=== PATIENT | male | born 1970 | race Caucasian/White ===

== ENCOUNTER 2016-09-26 14:11 | Emergency (ER) | payer MEDICARE, MEDICAID ==
--- NOTE | 2016-09-26 14:33 | ER Document Report ---
ED Medical Screen (RME) - General Stated Complaint: BELLY BUTTON PAIN Time seen by provider: 14:29 Mode of Arrival: Ambulatory Information source: Patient Notes: 46 y0 male with hx 3 hernias is c/o perminantly protruding umbilicus for several months, noticed skin is wet and peeling off when bent forward today to pick something up off the floor. Hx liver failure and perocentisis. Feels normal rest of the rest of the body. TRAVEL OUTSIDE OF THE [place] IN LAST 30 DAYS: No - Related Data Allergies/Adverse Reactions: No Known Allergies Allergy (Verified 09/26/16 14:29) Past Medical History - Past Medical History Cardiac Medical History: Reports: Hx Coronary Artery Disease - HIGH CHOLESTEROL , Hx Hypercholesterolemia, Hx Hypertension Denies: Hx Heart Attack Pulmonary Medical History: Denies: Hx Asthma, Hx Bronchitis, Hx COPD, Hx Pneumonia Neurological Medical History: Denies: Hx Cerebrovascular Accident, Hx Seizures Endocrine Medical History: Reports: Hx Diabetes Mellitus Type 2 GI Medical History: Reports: Hx Cirrhosis, Hx Hepatitis, Hx Liver Failure Musculoskeltal Medical History: Denies Hx Arthritis Psychiatric Medical History: Reports: Hx Anxiety, Hx Depression Infectious Medical History: Reports: Hx Hepatitis Past Surgical History: Denies: Hx Pacemaker - Immunizations Hx Diphtheria, Pertussis, Tetanus Vaccination: Yes Physical Exam - Vital signs Vitals: Temp Pulse Resp BP Pulse Ox 97.8 F 103 H 18 151/118 H 98 09/26/16 14:32 09/26/16 14:32 09/26/16 14:32 09/26/16 14:32 09/26/16 14:32 Course - Vital Signs Vital signs: Temp Pulse Resp BP Pulse Ox 97.8 F 103 H 18 151/118 H 98 09/26/16 14:32 09/26/16 14:32 09/26/16 14:32 09/26/16 14:32 09/26/16 14:32
[2016-09-26 15:20] LABS: ABSOLUTE BASOPHILS # (AUTO) 0.1 10^3/uL (0.0-0.2); ABSOLUTE EOSINOPHILS # (AUTO) 0.1 10^3/uL (0.0-0.6); ABSOLUTE LYMPHOCYTES (AUTO) 0.5 10^3/uL (0.5-4.7); ABSOLUTE MONOCYTES (AUTO) 0.9 10^3/uL (0.1-1.4); ABSOLUTE NEUT (AUTO) 3.1 10^3/uL (1.7-8.2); BASOPHILS % (AUTO) 1.3 % (0-2); HEMOGLOBIN 9.1 g/dL (13.5-17.0)
[2016-09-26 15:26] LABS: EOSINOPHILS % (AUTO) 1.8 % (0-6); HEMATOCRIT 25.7 % (37.9-51.0); HGB HCT DIFFERENCE 1.6; LYMPHOCYTES % (AUTO) 11.2 % (13-45); MEAN CORPUSCULAR HEMOGLOBIN 32.3 pg (27.0-33.4); MEAN CORPUSCULAR HGB CONC 35.3 g/dL (32.0-36.0); MONOCYTES % (AUTO) 19.2 % (3-13); RED CELL DISTRIBUTION WIDTH 16.4 % (11.5-14.0); SEGMENTED NEUTROPHILS % (AUTO) 66.5 % (42-78); WHITE BLOOD COUNT 4.7 10^3/uL (4.0-10.5)
[2016-09-26 15:35] LABS: ALANINE AMINOTRANSFERASE 35 U/L (21-72); ALKALINE PHOSPHATASE 94 U/L (38-126); ANION GAP 8 (5-19); ASPARTATE AMINO TRANSFERASE 65 U/L (17-59); BILIRUBIN,TOTAL 2.7 mg/dL (0.2-1.3); BLOOD UREA NITROGEN 4 mg/dL (7-20); CALCIUM 8.6 mg/dL (8.4-10.2); CARBON DIOXIDE 33 mmol/L (22-30); CHLORIDE 89 mmol/L (98-107); CREATININE RESULT 0.52 mg/dL (0.52-1.25); GLUCOSE 218 mg/dL (75-110); POTASSIUM 3.6 mmol/L (3.6-5.0); TOTAL PROTEIN 6.5 g/dL (6.3-8.2)
--- NOTE | 2016-09-26 15:46 | ER Document Report ---
ED General - General Chief Complaint: Skin Problem Stated Complaint: BELLY BUTTON PAIN Mode of Arrival: Ambulatory Information source: Patient Notes: 46-year-old male who has a history of an umbilical hernia secondary to ascites from liver failure due to alcohol intoxication chronic presents with complaints that there is irritation of the umbilical hernia. Patient denies any difficulty with bowel movements, denies any pain. Notes that the area. Demerol when he touched it and came in for evaluation TRAVEL OUTSIDE OF THE [place] IN LAST 30 DAYS: No - HPI Onset: Just prior to arrival Onset/Duration: Sudden Quality of pain: No pain Severity: Mild Pain Level: Denies Associated symptoms: None Exacerbated by: Denies Relieved by: Denies Similar symptoms previously: No Recently seen / treated by doctor: No - Related Data Allergies/Adverse Reactions: No Known Allergies Allergy (Verified 09/26/16 14:29) Past Medical History - General Information source: Patient - Social History Smoking Status: Unknown if Ever Smoked Cigarette use (# per day): No Chew tobacco use (# tins/day): No Smoking Education Provided: No Frequency of alcohol use: None Drug Abuse: None Family History: Reviewed & Not Pertinent Patient has suicidal ideation: No Patient has homicidal ideation: No - Past Medical History Cardiac Medical History: Reports: Hx Coronary Artery Disease - HIGH CHOLESTEROL , Hx Hypercholesterolemia, Hx Hypertension Denies: Hx Heart Attack Pulmonary Medical History: Denies: Hx Asthma, Hx Bronchitis, Hx COPD, Hx Pneumonia Neurological Medical History: Denies: Hx Cerebrovascular Accident, Hx Seizures Endocrine Medical History: Reports: Hx Diabetes Mellitus Type 2 GI Medical History: Reports: Hx Cirrhosis, Hx Hepatitis, Hx Liver Failure Musculoskeltal Medical History: Denies Hx Arthritis Psychiatric Medical History: Reports: Hx Anxiety, Hx Depression Infectious Medical History: Reports: Hx Hepatitis Past Surgical History: Denies: Hx Pacemaker - Immunizations Hx Diphtheria, Pertussis, Tetanus Vaccination: Yes Review of Systems - Review of Systems Notes: REVIEW OF SYSTEMS: CONSTITUTIONAL : Denies fever, chills, or sweats. Denies recent illness. EENT: Denies eye, ear, throat, or mouth pain or symptoms. Denies nasal or sinus congestion or discharge. Denies throat, tongue, or mouth swelling or difficulty swallowing. CARDIOVASCULAR: Denies chest pain. Denies palpitations or racing or irregular heart beat. Denies ankle edema. RESPIRATORY: Denies cough, cold, or chest congestion. Denies shortness of breath, difficulty breathing, or wheezing. GASTROINTESTINAL: Admits to chronic abdominal distention GENITOURINARY: Denies difficulty urinating, painful urination, burning, frequency, blood in urine, or discharge. MUSCULOSKELETAL: Denies back or neck pain or stiffness. Denies joint pain or swelling. SKIN: Admits to sloughing of skin from umbilical hernia HEMATOLOGIC : Denies easy bruising or bleeding. LYMPHATIC: Denies swollen, enlarged glands. NEUROLOGICAL: Denies confusion or altered mental status. Denies passing out or loss of consciousness. Denies dizziness or lightheadedness. Denies headache. Denies weakness or paralysis or loss of use of either side. Denies problems with gait or speech. Denies sensory loss, numbness, or tingling. Denies seizures. PSYCHIATRIC: Denies anxiety or stress. Denies depression, suicidal ideation, or homicidal ideation. ALL OTHER SYSTEMS REVIEWED AND NEGATIVE. Dictation was performed using yoone voice recognition software PHYSICAL EXAMINATION: GENERAL: Well-appearing, well-nourished and in no acute distress. HEAD: Atraumatic, normocephalic. EYES: Pupils equal round and reactive to light, extraocular movements intact, sclera anicteric, conjunctiva are normal. ENT: Nares patent, oropharynx clear without exudates. Moist mucous membranes. NECK: Normal range of motion, supple without lymphadenopathy LUNGS: Breath sounds clear to auscultation bilaterally and equal. No wheezes rales or rhonchi. HEART: Regular rate and rhythm without murmurs ABDOMEN: Distended abdomen umbilical hernia easily reducible Musculoskeletal: Normal range of motion, no pitting or edema. No cyanosis. NEUROLOGICAL: Cranial nerves grossly intact. Normal speech, normal gait. Normal sensory, motor exams PSYCH: Normal mood, normal affect. SKIN: Circular region measuring 2 x 2 centimeters of the left lateral hernia that has a skin slough off no secondary sign of infection Physical Exam - Vital signs Vitals: Temp Pulse Resp BP Pulse Ox 97.8 F 103 H 18 151/118 H 98 09/26/16 14:32 09/26/16 14:32 09/26/16 14:32 09/26/16 14:32 09/26/16 14:32 Course - Re-evaluation Re-evalutation: 09/26/16 16:04 Patient has obvious softening of the skin, this is probably due to do chronic hernia with distention. There is no life-threatening issues at this time I will start the patient on silver sulfadiazine and follow-up with his own primary care physician as he is otherwise stable There is no obstruction noted After performing a Medical Screening Examination, I estimate there is LOW risk for OPEN FRACTURE, COMPARTMENT SYNDROME, TENDON RUPTURE, ACUTE NEUROVASCULAR INJURY, or RETAINED FOREIGN BODY, thus I consider the discharge disposition reasonable. Also, there is no evidence or peritonitis, sepsis, or toxicity. The patient and I have discussed the diagnosis and risks, and we agree with discharging home with close follow-up with the understanding that symptoms and presentations can change. We also discussed returning to the Emergency Department immediately if new or worsening symptoms occur. We have discussed the symptoms which are most concerning (e.g., changing or worsening pain, fever , numbness, weakness, cool or painful digits) that necessitate immediate return. - Vital Signs Vital signs: Temp Pulse Resp BP Pulse Ox 97.8 F 103 H 18 151/118 H 98 09/26/16 14:32 09/26/16 14:32 09/26/16 14:32 09/26/16 14:32 09/26/16 14:32 - Laboratory Result Diagrams: 09/26/16 15:00 09/26/16 15:00 Laboratory results interpreted by me: 09/26/16 09/26/16 15:00 15:00 RBC 2.80 L Hgb 9.1 L Hct 25.7 L RDW 16.4 H Plt Count 91 L Lymphocytes % 11.2 L Monocytes % 19.2 H Sodium 130.0 L Chloride 89 L Carbon Dioxide 33 H BUN 4 L Glucose 218 H Total Bilirubin 2.7 H AST 65 H Albumin 3.0 L Discharge - Discharge Clinical Impression: Sloughing of skin, Abdominal distension Condition: Stable Disposition: HOME, SELF-CARE Instructions: Delayed Wound Closure ([facility]) Referrals: LEONCIO CARMICHAEL DO [Primary Care Provider] - Follow up in 3-5 days
[2016-09-26 15:48] LABS: MEAN CORPUSCULAR VOLUME 92 fl (80-97)
[2016-09-26] MEDS ORDERED: SILVER SULFADIAZINE 1% CREAM 25 GM TP SCH (16:00)
[2016-09-26 16:03] VITALS: BP 119/65
== END 2016-09-26 16:17 | disposition home or self-care (01) ==
LOC: ER 14:11
DX: R14.0 Abdominal distension (gaseous) (principal); I96 Gangrene, not elsewhere classified; K42.9 Umbilical hernia without obstruction or gangrene
CPT/HCPCS: 99284; 36415; 85025; 80053; A9270

== ENCOUNTER 2016-10-06 07:25 | Day surgery (SDC) | payer MEDICARE, MEDICAID ==
[~2016-10-06 07:25] MED LIST: ALBUMIN HUMAN 100 ML IV PRN
[2016-10-06 08:06] LABS: HEMATOCRIT 25.7 % (37.9-51.0); HGB HCT DIFFERENCE 1.3; MEAN CORPUSCULAR HEMOGLOBIN 32.5 pg (27.0-33.4); MEAN CORPUSCULAR HGB CONC 35.1 g/dL (32.0-36.0); MEAN CORPUSCULAR VOLUME 92 fl (80-97); PROTHROMBIN TIME 17.8 SEC (11.4-15.4); RED BLOOD COUNT 2.78 10^6/uL (4.35-5.55); RED CELL DISTRIBUTION WIDTH 16.6 % (11.5-14.0); WHITE BLOOD COUNT 3.9 10^3/uL (4.0-10.5)
[2016-10-06 08:07] LABS: PARTIAL THROMBOPLASTIN TIME 36.6 SEC (23.5-35.8)
[2016-10-06 08:16] LABS: ANION GAP 12 (5-19); BLOOD UREA NITROGEN 6 mg/dL (7-20); CALCIUM 7.7 mg/dL (8.4-10.2); CARBON DIOXIDE 32 mmol/L (22-30); CHLORIDE 82 mmol/L (98-107); CREATININE RESULT 0.55 mg/dL (0.52-1.25); GLUCOSE 147 mg/dL (75-110); SODIUM 125.7 mmol/L (137-145)
[2016-10-06 08:26] LABS: POTASSIUM 2.5 mmol/L (3.6-5.0)
[2016-10-06] MEDS ORDERED: POTASSIUM CHLORIDE 10 MEQ TABLET.SA PO ONE (08:32)
[2016-10-06] MEDS ORDERED: POTASSIUM CHLORIDE 10 MEQ TABLET.SA PO PRN (08:34)
[2016-10-06 14:12] VITALS: BP 137/89
== END 2016-10-06 14:00 | disposition home or self-care (01) ==
LOC: RAD 07:25
PROVIDERS: ATTEND Family Medicine
PROC: 0W9G3ZZ Drainage of Peritoneal Cavity, Percutaneous Approach (ICD-10-PCS; principal; 2016-10-06)
PROC: 30233R1 Transfusion of Nonautologous Platelets into Peripheral Vein, Percutaneous Approach (ICD-10-PCS; 2016-10-06)
DX: K70.31 Alcoholic cirrhosis of liver with ascites (principal)
CPT/HCPCS: 86900; 86901; 36415; 36430; 86850; 85027; 85610; 85730; 80048; 49083; P9035; P9047; A9270

== ENCOUNTER 2016-11-19 08:46 | Observation (INO) | payer MEDICARE, MEDICAID ==
--- NOTE | 2016-11-19 09:04 | ER Document Report ---
ED General - General Chief Complaint: Abnormal Lab Results Stated Complaint: WEAKNESS Notes: The patient is a 46-year-old male, past medical history alcoholic cirrhosis, ascites, history of variceal bleed, presents from the outpatient surgical center with hyperkalemia and anemia. He was supposed to have his outpatient routine paracentesis today. He was having nausea and vomiting 3 days ago, which has resolved. He said that he saw a small amount of blood streaks in his vomit, but denies shyam hematemesis. He is also having dark stools. He is having mild lightheadedness but denies syncope, chest pain, shortness of breath , abdominal pain, fevers, current nausea or focal weakness. TRAVEL OUTSIDE OF THE [place] IN LAST 30 DAYS: No - Related Data Allergies/Adverse Reactions: No Known Allergies Allergy (Verified 11/19/16 08:52) Past Medical History - General Information source: Patient - Social History Smoking Status: Never Smoker Chew tobacco use (# tins/day): No Frequency of alcohol use: None Drug Abuse: None Family History: Reviewed & Not Pertinent Patient has suicidal ideation: No Patient has homicidal ideation: No - Past Medical History Cardiac Medical History: Reports: Hx Coronary Artery Disease - HIGH CHOLESTEROL , Hx Hypercholesterolemia, Hx Hypertension Denies: Hx Heart Attack Pulmonary Medical History: Denies: Hx Asthma, Hx Bronchitis, Hx COPD, Hx Pneumonia Neurological Medical History: Denies: Hx Cerebrovascular Accident, Hx Seizures Endocrine Medical History: Reports: Hx Diabetes Mellitus Type 2 Renal/ Medical History: Denies: Hx Peritoneal Dialysis GI Medical History: Reports: Hx Cirrhosis, Hx Hepatitis, Hx Liver Failure Musculoskeltal Medical History: Denies Hx Arthritis Psychiatric Medical History: Reports: Hx Anxiety, Hx Depression Infectious Medical History: Reports: Hx Hepatitis Past Surgical History: Denies: Hx Pacemaker - Immunizations Hx Diphtheria, Pertussis, Tetanus Vaccination: Yes Review of Systems - Review of Systems Notes: REVIEW OF SYSTEMS: CONSTITUTIONAL: -fevers, -chills EENT: -eye pain, -difficulty swallowing, -nasal congestion CARDIOVASCULAR: -chest pain, -syncope. RESPIRATORY: -cough, -SOB GASTROINTESTINAL: -abdominal pain, -nausea, -vomiting, -diarrhea GENITOURINARY: -dysuria, -hematuria MUSCULOSKELETAL: -back pain, -neck pain SKIN: -rash or skin lesions. HEMATOLOGIC: -easy bruising or bleeding. LYMPHATIC: -swollen, enlarged glands. NEUROLOGICAL: -altered mental status or loss of consciousness, -headache, - neurologic symptoms PSYCHIATRIC: -anxiety, -depression. ALL OTHER SYSTEMS REVIEWED AND NEGATIVE. Physical Exam - Vital signs Vitals: Temp Pulse Resp BP Pulse Ox 98.4 F 115 H 20 131/75 H 95 11/19/16 08:51 11/19/16 08:51 11/19/16 08:51 11/19/16 08:51 11/19/16 08:51 - Notes Notes: PHYSICAL EXAMINATION: GENERAL: Well-appearing, well-nourished and in no acute distress. HEAD: Atraumatic, normocephalic. EYES: Pupils equal round and reactive to light, extraocular movements intact, sclera icteric, conjunctiva are normal. ENT: nares patent, oropharynx clear without exudates. Moist mucous membranes. NECK: Normal range of motion, supple without lymphadenopathy LUNGS: Breath sounds clear to auscultation bilaterally and equal. No wheezes rales or rhonchi. HEART: Tachycardic, regular rhythm ABDOMEN: Abdominal fluid wave, non-tender, umbilical hernia, normoactive bowel sounds. No guarding, no rebound. No masses appreciated. Brown stool. EXTREMITIES: Normal range of motion, no pitting or edema. No cyanosis. NEUROLOGICAL: Cranial nerves grossly intact. Normal speech, normal gait. Normal sensory, motor, and reflex exams. PSYCH: Normal mood, normal affect. SKIN: Warm, Dry, normal turgor, no rashes or lesions noted. Course - Re-evaluation Re-evalutation: Patient with severe hypokalemia from labs done this morning. Looking through prior labs, patient has had multiple episodes of hypokalemia. He also has evidence of hypomagnesemia from prior visits. EKG does not show evidence of hypokalemia this time. Will provide potassium and magnesium. He is also having symptomatic anemia. Hemoglobin is slightly below his baseline (7.7 from 8-9). With his tachycardia and lightheadedness, will provide one unit of PRBCs. Pt's PMD is Dr. Jimenez. Do not suspect variceal bleeding at this time without active hematemesis and brown stool with only trace Guaic positive. 11/19/16 10:[address] Valencia (Surgicalist) and he will see patient as Consult for possible scope. Spoke to Dr. Sauceda and he has accepted patient at Inpatient Telemetry. - Vital Signs Vital signs: Temp Pulse Resp BP Pulse Ox 98.4 F 115 H 20 131/75 H 95 11/19/16 08:51 11/19/16 08:51 11/19/16 09:05 11/19/16 08:51 11/19/16 08:51 - Laboratory Laboratory results interpreted by me: 11/19/16 11/19/16 09:24 09:24 Magnesium 1.4 L Crossmatch See Detail - EKG Interpretation by [facility] EKG shows normal: Sinus rhythm, [place], Intervals, QRS Complexes, ST-T Waves Discharge - Discharge Clinical Impression: Hypokalemia Anemia Qualifiers: Anemia type: unspecified type Qualified Code(s): D64.9 - Anemia, unspecified Condition: Stable Disposition: ADMITTED INPATIENT Admitting Provider: Hospitalist - [facility] Admitted: Telemetry
[2016-11-19] MEDS ORDERED: POTASSIUM CHLORIDE 10 MEQ TABLET.SA PO ONE (09:15)
[2016-11-19] MEDS ORDERED: MAGNESIUM SULFATE 100 ML IV ONE (09:16)
[2016-11-19] MEDS ORDERED: NORMAL SALINE 1000 ML 250 ML IV ONE (09:17)
--- NOTE | 2016-11-19 09:28 | EKG REPORT ---
SEVERITY:- ABNORMAL ECG - SINUS TACHYCARDIA ATRIAL PREMATURE COMPLEX NONSPECIFIC T ABNORMALITIES, LATERAL LEADS : Confirmed by: Shon Perdomo MD 19-Nov-2016 09:27:51
[2016-11-19] MEDS: POTASSI CL 20 MEQ/50 ML RIDER 50 ML IV SCH ×5 (09:47→17:56)
[2016-11-19] MEDS ORDERED: NORMAL SALINE 250 ML IV PRN (10:00)
[2016-11-19] MEDS ORDERED: OXYCODONE-ACETAMINOPHEN 5-325 MG TABLET PO PRN (11:45)
[2016-11-19] MEDS ORDERED: INSULIN LISPRO 100 UNIT/ML 3 ML VIAL SUBCUT PRN (12:11)
[2016-11-19] MEDS ORDERED: DEXTROSE 50%-WATER 25 GM/50 ML DISP.SYRIN IV PRN ×2 (12:11)
[2016-11-19] MEDS ORDERED: GLUCAGON,HUMAN RECOMB 1 MG INJ IM PRN (12:11)
[2016-11-19] MEDS ORDERED: DEXTROSE 40% GEL 15 GM TUBE PO PRN ×2 (12:11)
--- NOTE | 2016-11-19 12:30 | PDOC H&P ---
History of Present Illness Admission Date/PCP: 11/19/16 10:56 LEONCIO CARMICHAEL DO Patient complains of: Anemia and low potassium History of Present Illness: MONE LOPEZ is a 46 year old male who has a history of 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 Started on Tuesday he began having diarrhea with melanotic type stools. Patient reports that most of this has resolved since last night. The patient presented to the outpatient center for a scheduled paracentesis and he was found to be hypokalemic as well as anemic. He is admitted for further treatment Past Medical History Cardiac Medical History: Reports: Coronary Artery Disease - HIGH CHOLESTEROL, Hyperlipidema, Hypertension Denies: Myocardial Infarction Pulmonary Medical History: Denies: Asthma, Bronchitis, Chronic Obstructive Pulmonary Disease (COPD), Pneumonia EENT Medical History: Reports: None Neurological Medical History: Denies: Seizures Endocrine Medical History: Reports: Diabetes Mellitus Type 2 Renal/ Medical History: Reports: None Malignancy Medical History: Reports: None GI Medical History: Reports: Cirrhosis, Hepatitis Musculoskeltal Medical History: Denies: Arthritis Skin Medical History: Reports: None Psychiatric Medical History: Reports: Depression Hematology: Reports: Anemia Infectious Medical History: Reports: None Past Surgical History Past Surgical History: Denies: Pacemaker Social History Information Source: Patient Lives with: Spouse/Significant other Smoking Status: Never Smoker Frequency of Alcohol Use: Rare Hx Recreational Drug Use: No Drugs: None Hx Prescription Drug Abuse: No - Advance Directive Resuscitation Status: Full Code Surrogate healthcare decision maker:: His is his decision maker Family History Family History: Father was murdered and had no chronic health problems. Mother from an unspecified type of cancer. Parental Family History Reviewed: Yes Children Family History Reviewed: No Sibling(s) Family History Reviewed.: No Medication/Allergy Home Medications: Gabapentin 100 mg PO TID 12/10/14 Lactulose [Cephulac Syrup 20 gm/30 ml Udcup] 10 gm PO DAILY #240 oz 12/13/14 Nadolol [Corgard] 40 mg PO DAILY #30 tablet 12/13/14 Rifaximin [Xifaxan 550 mg Tablet] 550 mg PO BID #60 tablet 12/13/14 Spironolactone [Aldactone 25 mg Tablet] 50 mg PO DAILY #30 tablet 12/13/14 Multivitamin [Tab-A-Linh (Multiple Vitamin) Tablet] 1 tab PO DAILY #30 tablet Folic Acid 1 mg PO DAILY 10/17/15 Thiamine HCl [Thiamine 100 mg Tablet] 100 mg PO DAILY 10/17/15 Insulin Lispro [Humalog Insulin (Lispro) 100 unit/mL] See Protocol SUBCUT ACHSP PRN #2 unit 12/29/15 Testosterone [Androgel] 75 gm TD ASDIR 03/12/16 Furosemide [Lasix 40 mg Tablet] 80 mg PO BID 06/04/16 Allergies/Adverse Reactions: No Known Allergies Allergy (Verified 11/19/16 08:52) Review of Systems Constitutional: PRESENT: fever(s). ABSENT: chills, headache(s), weight gain, weight loss Eyes: ABSENT: visual disturbances Ears: ABSENT: hearing changes Cardiovascular: ABSENT: chest pain, dyspnea on exertion, edema, orthropnea, palpitations Respiratory: ABSENT: cough, hemoptysis Gastrointestinal: PRESENT: as per HPI, diarrhea, melena, nausea, vomiting Genitourinary: ABSENT: dysuria, hematuria Musculoskeletal: ABSENT: joint swelling Integumentary: ABSENT: rash, wounds Neurological: ABSENT: abnormal gait, abnormal speech, confusion, dizziness, focal weakness, syncope Psychiatric: ABSENT: anxiety, depression Endocrine: ABSENT: cold intolerance, heat intolerance, polydipsia, polyuria Hematologic/Lymphatic: ABSENT: easy bleeding, easy bruising Physical Exam Vital Signs: Temp Pulse Resp BP Pulse Ox 98.4 F 99 18 105/77 97 11/19/16 11:43 11/19/16 11:43 11/19/16 11:43 11/19/16 11:43 11/19/16 11:43 Intake & Output 11/18/16 11/19/16 11/20/16 06:59 06:59 06:59 Intake Total 0 Balance 0 General appearance: PRESENT: no acute distress Eye exam: PRESENT: conjunctiva pink. ABSENT: scleral icterus Mouth exam: PRESENT: moist, tongue midline Neck exam: ABSENT: carotid bruit, JVD, lymphadenopathy, thyromegaly Respiratory exam: PRESENT: clear to auscultation gerardo. ABSENT: rales, rhonchi, wheezes Cardiovascular exam: PRESENT: RRR. ABSENT: diastolic murmur, rubs, systolic murmur Pulses: PRESENT: normal dorsalis pedis pul Vascular exam: PRESENT: normal capillary refill GI/Abdominal exam: PRESENT: distended - Patient has a positive fluid wave consistent with ascites with a umbilical hernia filled with fluid, normal bowel sounds, soft. ABSENT: guarding, mass, organolmegaly, rebound, tenderness Rectal exam: PRESENT: heme (+) stool Extremities exam: ABSENT: calf tenderness, clubbing, pedal edema Neurological exam: PRESENT: alert, awake, oriented to person, oriented to place , oriented to time, oriented to situation, CN II-XII grossly intact. ABSENT: motor sensory deficit Psychiatric exam: PRESENT: appropriate affect Skin exam: PRESENT: dry, intact, warm, other - Multiple spider angiomas on the chest. ABSENT: cyanosis, rash Assessment & Plan - Diagnosis (1) Anemia Qualifiers: Anemia type: unspecified type Qualified Code(s): D64.9 - Anemia, unspecified Is this a current diagnosis for this admission?: YesPlan: Patient has had some episodes of melanotic stool over the last 2 days. He reports that the melena has stopped. He does have a history of esophageal varices and general surgery will evaluate and perform EGD today to see whether or not he has gastric ulcer or whether this is all from variceal bleeding. We do not have GI available answers evidence for active variceal bleeding he would need to be transferred however he appears to have no further active bleeding at this time. Patient will be transfused 2 units packed red blood cells. Will be given IV Pepcid. (2) Cirrhosis of liver with ascites Qualifiers: Hepatic cirrhosis type: alcoholic cirrhosis Qualified Code(s): K70.31 - Alcoholic cirrhosis of liver with ascites Is this a current diagnosis for this admission?: YesPlan: Patient was scheduled for a paracentesis today. Will put on hold for now and await the results of his EGD. If he has no evidence for active bleeding and his hemoglobin remained stable we'll plan on paracentesis tomorrow. (3) Hypokalemia Is this a current diagnosis for this admission?: YesPlan: Patient has been on Lasix and Aldactone. We'll give IV potassium and increase his Aldactone. (4) Hypomagnesemia Is this a current diagnosis for this admission?: YesPlan: Most likely secondary to his underlying diuretic therapy. We'll give IV magnesium and follow. (5) Coagulopathy Is this a current diagnosis for this admission?: YesPlan: Secondary to underlying liver disease. (7) Diabetes mellitus Is this a current diagnosis for this admission?: YesPlan: The patient only takes his insulin when necessary. Will do sliding scale insulin along with fingerstick blood sugars. - Time Time Spent: 50 to 70 Minutes - Plan Summary Plan Summary: Patient will be admitted as an observation as I anticipate this will require less than a 2 midnight hospital stay.
[2016-11-19] MEDS: MAGNESIUM SULFATE/D5W 100 ML IV SCH ×2 (14:26→14:50)
[2016-11-19] MEDS: GABAPENTIN 100 MG CAPSULE PO SCH ×2 (14:33→17:34)
[2016-11-19] MEDS: FUROSEMIDE 40 MG TABLET PO SCH (17:34)
[2016-11-19] MEDS: RIFAXIMIN 550 MG TABLET PO SCH (17:34)
[2016-11-19] MEDS: FAMOTIDINE INJ/PF 20 MG/2 ML SDV IV SCH (21:15)
[2016-11-20 06:41] LABS: HEMATOCRIT 24.2 % (37.9-51.0); HEMOGLOBIN 8.3 g/dL (13.5-17.0); HGB HCT DIFFERENCE 0.7; MEAN CORPUSCULAR HEMOGLOBIN 30.9 pg (27.0-33.4); MEAN CORPUSCULAR HGB CONC 34.1 g/dL (32.0-36.0); MEAN CORPUSCULAR VOLUME 91 fl (80-97); RED BLOOD COUNT 2.67 10^6/uL (4.35-5.55); RED CELL DISTRIBUTION WIDTH 19.8 % (11.5-14.0); WHITE BLOOD COUNT 4.3 10^3/uL (4.0-10.5)
[2016-11-20 06:48] LABS: ANION GAP 10 (5-19); BLOOD UREA NITROGEN 6 mg/dL (7-20); CALCIUM 7.5 mg/dL (8.4-10.2); CARBON DIOXIDE 31 mmol/L (22-30); CHLORIDE 86 mmol/L (98-107); CREATININE RESULT 0.67 mg/dL (0.52-1.25); GLUCOSE 112 mg/dL (75-110); MAGNESIUM 1.7 mg/dL (1.6-2.3); SODIUM 126.5 mmol/L (137-145)
[2016-11-20 07:13] LABS: POTASSIUM 3.3 mmol/L (3.6-5.0)
[2016-11-20] MEDS: POTASSI CL 20 MEQ/50 ML RIDER 20 MEQ/50 ML RTUPB IV SCH ×2 (08:22→09:27)
[2016-11-20] MEDS: FAMOTIDINE INJ/PF 20 MG/2 ML SDV IV SCH (09:20)
[2016-11-20] MEDS: GABAPENTIN 100 MG CAPSULE PO SCH (09:20)
[2016-11-20] MEDS: FUROSEMIDE 40 MG TABLET PO SCH (09:21)
[2016-11-20] MEDS: RIFAXIMIN 550 MG TABLET PO SCH (09:24)
[2016-11-20] MEDS ORDERED: (PENDING PHARMACY ID) (Nadolol [Corgard] 40 MG) PO SCH (10:00)
[2016-11-20] MEDS ORDERED: THIAMINE HCL 100 MG TABLET PO SCH (10:00)
[2016-11-20] MEDS ORDERED: FOLIC ACID 1 MG TABLET PO SCH (10:00)
[2016-11-20] MEDS ORDERED: NADOLOL 40 MG TABLET PO SCH (10:00)
[2016-11-20] MEDS ORDERED: LACTULOSE SYRUP 20 GM/30 ML UDCUP PO SCH (10:00)
[2016-11-20] MEDS ORDERED: MULTIVITAMIN TABLET PO SCH (10:00)
[2016-11-20] MEDS ORDERED: SPIRONOLACTONE 25 MG TABLET PO SCH (10:00)
[2016-11-20 10:22] LABS: PROTHROMBIN TIME 21.2 SEC (11.4-15.4)
[2016-11-20 10:23] LABS: PARTIAL THROMBOPLASTIN TIME 37.7 SEC (23.5-35.8)
[2016-11-20 11:10] VITALS: BP 119/72
--- NOTE | 2016-11-20 11:35 | PDOC DISCHARGE SUMMARY ---
General - Admit/Disc Date/PCP Admission Date/Primary Care Provider: 11/19/16 10:56 LEONCIO CARMICHAEL, Discharge Date: 11/20/16 - Discharge Diagnosis (1) Anemia Is this a current diagnosis for this admission?: YesSummary: Secondary to acute blood loss anemia from GI bleeding. (2) Cirrhosis of liver with ascites Is this a current diagnosis for this admission?: YesSummary: With a large amount of ascites. We will unable to get a paracentesis done by radiology today. He will be discharged home and get this done as an outpatient. (3) Hypokalemia Is this a current diagnosis for this admission?: YesSummary: Secondary to diuretic therapy he is given IV potassium and sent home on oral replacement (4) Hypomagnesemia Is this a current diagnosis for this admission?: YesSummary: Resolved (5) Coagulopathy Is this a current diagnosis for this admission?: YesSummary: Secondary to his underlying liver disease. (6) Thrombocytopenia Is this a current diagnosis for this admission?: YesSummary: Secondary to chronic liver disease. (7) Diabetes mellitus Is this a current diagnosis for this admission?: Yes - Additional Information Resuscitation Status: Full Code Discharge Diet: Diabetic Discharge Activity: Activity As Tolerated Home Medications: Furosemide [Lasix] 80 mg PO BID 11/19/16 Gabapentin [Neurontin 100 mg Capsule] 100 mg PO Q8 11/19/16 Lactulose [Enulose 10 gm/15 mL Oral Solution] 10 gm PO BID 11/19/16 Multivitamin [Multivitamins] 1 each PO DAILY 11/19/16 Omeprazole 20 mg PO DAILY 11/19/16 Potassium Chloride [Klor-Con 10 Meq Tablet.sa] 20 meq PO BIDPCBS 11/19/16 Rifaximin [Xifaxan 200 mg Tablet] 550 mg PO Q12 11/19/16 Spironolactone [Aldactone] 50 mg PO Q12 11/19/16 Nadolol [Corgard 40 mg Tablet] 40 mg PO DAILY tablet 11/20/16 History of Present Illness History of Present Illness: MONE LOPEZ is a 46 year old male who has a history of 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 Started on Tuesday he began having diarrhea with melanotic type stools. Patient reports that most of this has resolved since last night. The patient presented to the outpatient center for a scheduled paracentesis and he was found to be hypokalemic as well as anemic. He is admitted for further treatment Hospital Course Hospital Course: 46-year-old male admitted with anemia. He was scheduled for an outpatient paracentesis when he was found to have a hemoglobin of 7. The patient reported that prior to coming to the hospital he had 2 days of melanotic stool associated with nausea. The patient was transfused 2 units of packed red blood cells and had no melena while hospitalized. He was evaluated by general surgery for the possibility of endoscopy however given his history of varices the general surgeon felt that he was unable to perform an EGD. The patient had no further evidence for melanotic stools and it appears to whatever was the cause for his GI bleeding has resolved. Most likely this was either a peptic ulcer or variceal bleeding. The patient can follow-up with his civil manager as he is having no evidence for continued active bleeding. He has never had any hemodynamic instability. The patient has tense ascites but has no abdominal pain. We attempted to have radiology perform a therapeutic paracentesis however they were reluctant to do that given his coagulopathy and pancytopenia. He has no evidence for any type of acute infection and he will get this scheduled as an outpatient. Physical Exam Vital Signs: Temp Pulse Resp BP Pulse Ox 98.1 F 110 H 16 119/72 95 11/20/16 11:04 11/20/16 11:04 11/20/16 11:04 11/20/16 11:04 11/20/16 11:04 Intake & Output 11/19/16 11/20/16 11/21/16 06:59 06:59 06:59 Intake Total 2152 Balance 2152 Weight 86.8 kg General appearance: PRESENT: no acute distress Eye exam: PRESENT: conjunctiva pink. ABSENT: scleral icterus Mouth exam: PRESENT: moist, tongue midline Neck exam: ABSENT: JVD Respiratory exam: PRESENT: clear to auscultation gerardo. ABSENT: rales, rhonchi, wheezes Cardiovascular exam: PRESENT: RRR. ABSENT: diastolic murmur, rubs, systolic murmur GI/Abdominal exam: PRESENT: ascites, distended, normal bowel sounds, soft. ABSENT: guarding, mass, organolmegaly, rebound, tenderness Extremities exam: PRESENT: pedal edema - Trace edema.. ABSENT: calf tenderness , clubbing Neurological exam: PRESENT: alert, awake, oriented to person, oriented to place , oriented to time, oriented to situation, CN II-XII grossly intact. ABSENT: motor sensory deficit Psychiatric exam: PRESENT: appropriate affect Results Laboratory Results: 11/20/16 05:54 11/20/16 05:54 11/20/16 11/20/16 05:54 05:54 WBC 4.3 RBC 2.67 L Hgb 8.3 L Hct 24.2 L MCV 91 MCH 30.9 MCHC 34.1 RDW 19.8 H Plt Count 45 L Sodium 126.5 L Potassium 3.3 L D Chloride 86 L Carbon Dioxide 31 H Anion Gap 10 BUN 6 L Creatinine 0.67 Est GFR ( Amer) > 60 Est GFR (Non-Af Amer) > 60 Glucose 112 H Calcium 7.5 L Magnesium 1.7 Qualifiers P[place]INT BEING DISCHARGED WITH ANY OF THE FOLLOWING DIAGNOSIS?: No Plan Discharge Plan: He is discharged home and follow-up with his primary care doctor in 1 week. Time Spent: Less than 30 Minutes
== END 2016-11-20 11:53 | disposition home or self-care (01) ==
LOC: ER 08:46 → INTOOBSV 10:56 → EH 10:56 → 4S 12:15
PROVIDERS: ADMIT Internal Medicine; ATTEND Internal Medicine
PROC: 3E033GC Introduction of Other Therapeutic Substance into Peripheral Vein, Percutaneous Approach (ICD-10-PCS; principal; 2016-11-19)
DX: D64.9 Anemia, unspecified (principal); K70.31 Alcoholic cirrhosis of liver with ascites; E87.6 Hypokalemia; E83.42 Hypomagnesemia; D68.4 Acquired coagulation factor deficiency; D69.59 Other secondary thrombocytopenia; E11.9 Type 2 diabetes mellitus without complications; I10 Essential (primary) hypertension; I25.10 Atherosclerotic heart disease of native coronary artery without angina pectoris
CPT/HCPCS: 93005; 99285; 96365; 96368; 86900; 86901; 36415 ×2; 36430; 86850; 82962 ×2; 83735 ×2; 85027; 85610; 85730; 82272; 80048; 86920; 93010; P9016; J3475 ×2; A9270 ×13; J3490 ×2; J3480 ×2; J7030; S0028 ×2; G0378

== ENCOUNTER → 2016-11-19 | Day surgery (SDC) | payer MEDICARE, MEDICAID ==
[2016-11-19 07:49] VITALS: BP 123/81
[2016-11-19 07:59] LABS: PROTHROMBIN TIME 20.3 SEC (11.4-15.4)
[2016-11-19 08:00] LABS: PARTIAL THROMBOPLASTIN TIME 38.8 SEC (23.5-35.8)
[2016-11-19 08:01] LABS: ANION GAP 10 (5-19); BLOOD UREA NITROGEN 10 mg/dL (7-20); CALCIUM 8.5 mg/dL (8.4-10.2); CARBON DIOXIDE 34 mmol/L (22-30); CHLORIDE 81 mmol/L (98-107); CREATININE RESULT 0.69 mg/dL (0.52-1.25); GLUCOSE 164 mg/dL (75-110); SODIUM 124.9 mmol/L (137-145)
[2016-11-19 08:03] LABS: HEMATOCRIT 22.5 % (37.9-51.0); HGB HCT DIFFERENCE 0.6; MEAN CORPUSCULAR HEMOGLOBIN 30.8 pg (27.0-33.4); MEAN CORPUSCULAR HGB CONC 34.1 g/dL (32.0-36.0); MEAN CORPUSCULAR VOLUME 90 fl (80-97); RED CELL DISTRIBUTION WIDTH 19.4 % (11.5-14.0); WHITE BLOOD COUNT 4.4 10^3/uL (4.0-10.5)
[2016-11-19 08:11] LABS: POTASSIUM 2.3 mmol/L (3.6-5.0)
[2016-11-19 08:23] LABS: HEMOGLOBIN 7.7 g/dL (13.5-17.0)
== END ==
LOC: RAD 07:30
PROVIDERS: ATTEND Family Medicine
DX: K70.31 Alcoholic cirrhosis of liver with ascites (principal); Z53.9 Procedure and treatment not carried out, unspecified reason
CPT/HCPCS: 36415; 80048; 85027; 85610; 85730; P9047

== ENCOUNTER 2016-11-26 07:17 | Day surgery (SDC) | payer MEDICARE, MEDICAID ==
[2016-11-26 08:02] LABS: HEMATOCRIT 26.4 % (37.9-51.0); HEMOGLOBIN 9.1 g/dL (13.5-17.0); HGB HCT DIFFERENCE 0.9; MEAN CORPUSCULAR HEMOGLOBIN 30.5 pg (27.0-33.4); MEAN CORPUSCULAR HGB CONC 34.4 g/dL (32.0-36.0); MEAN CORPUSCULAR VOLUME 89 fl (80-97); RED BLOOD COUNT 2.98 10^6/uL (4.35-5.55); RED CELL DISTRIBUTION WIDTH 20.3 % (11.5-14.0); WHITE BLOOD COUNT 4.1 10^3/uL (4.0-10.5)
[2016-11-26 08:08] LABS: PARTIAL THROMBOPLASTIN TIME 32.1 SEC (23.5-35.8)
[2016-11-26 08:24] LABS: BLOOD UREA NITROGEN 6 mg/dL (7-20); CREATININE RESULT 0.47 mg/dL (0.52-1.25); GLUCOSE 196 mg/dL (75-110)
[2016-11-26 09:58] LABS: POTASSIUM 3.4 mmol/L (3.6-5.0); SODIUM 127.9 mmol/L (137-145)
[2016-11-26 13:26] VITALS: BP 120/73
== END 2016-11-26 14:15 | disposition home or self-care (01) ==
LOC: RAD 07:17
PROVIDERS: ATTEND Family Medicine
PROC: 0W9F3ZZ Drainage of Abdominal Wall, Percutaneous Approach (ICD-10-PCS; principal; 2016-11-26)
DX: K70.31 Alcoholic cirrhosis of liver with ascites (principal); Z79.899 Other long term (current) drug therapy
CPT/HCPCS: 36415; 84520; 82565; 82947; 84132; 84295; 85027; 85610; 85730; 49083; P9047

== ENCOUNTER 2016-12-03 21:11 | Emergency (ER) | payer MEDICARE, MEDICAID ==
[2016-12-03] MEDS ORDERED: PANTOPRAZOLE SODIUM 40 MG VIAL IV ONE (21:21)
[2016-12-03] MEDS ORDERED: ONDANSETRON HCL INJ/PF 4 MG/2 ML SDV IV ONE (21:21)
--- NOTE | 2016-12-03 21:22 | ER Document Report ---
ED GI/ <ROEL LIPSCOMB - Last Filed: 12/04/16 08:33> - General Time seen by provider: 21:22 Mode of Arrival: Ambulatory Information source: Patient TRAVEL OUTSIDE OF THE [place] IN LAST 30 DAYS: No - HPI Patient complains to provider of: Vomiting Onset: Just prior to arrival Timing/Duration: Sudden Quality of pain: Achy Severity at maximum: Moderate Severity in ED: Moderate Location: Epigastric Associated symptoms: Nausea, Vomiting Exacerbated by: Denies Relieved by: Denies Similar symptoms previously: Yes Recently seen / treated by doctor: Yes <YULI MEDLEY - Last Filed: 12/06/16 06:19> - General Stated Complaint: THROWING UP BLOOD - HPI Notes: 12/04/16 01:40 Patient is a 46-year-old male with a history of alcoholic cirrhosis, who presents to the emergency room complaining of vomiting bright red blood this started just prior to arrival, he reports crampy abdominal pain as well, no fever, no sick contacts, no trauma, patient reports his last alcoholic beverage was approximately 3 years ago, however his breath smells like alcohol on evaluation (YULI MEDLEY) - Related Data Allergies/Adverse Reactions: No Known Allergies Allergy (Verified 11/19/16 08:52) Past Medical History - General Information source: Patient - Social History Smoking Status: Unknown if Ever Smoked Family History: Reviewed & Not Pertinent - Past Medical History Cardiac Medical History: Reports: Hx Coronary Artery Disease - HIGH CHOLESTEROL , Hx Hypercholesterolemia, Hx Hypertension Denies: Hx Heart Attack Pulmonary Medical History: Denies: Hx Asthma, Hx Bronchitis, Hx COPD, Hx Pneumonia Neurological Medical History: Denies: Hx Cerebrovascular Accident, Hx Seizures Endocrine Medical History: Reports: Hx Diabetes Mellitus Type 2 Renal/ Medical History: Denies: Hx Peritoneal Dialysis GI Medical History: Reports: Hx Cirrhosis, Hx Hepatitis, Hx Liver Failure Musculoskeltal Medical History: Denies Hx Arthritis Psychiatric Medical History: Reports: Hx Anxiety, Hx Depression Infectious Medical History: Reports: Hx Hepatitis Past Surgical History: Denies: Hx Pacemaker - Immunizations Hx Diphtheria, Pertussis, Tetanus Vaccination: Yes <YULI MEDLEY - Last Filed: 12/06/16 06:19> Review of Systems - Review of Systems Constitutional: No symptoms reported EENT: No symptoms reported Cardiovascular: No symptoms reported Respiratory: No symptoms reported Gastrointestinal: See HPI Genitourinary: No symptoms reported Male Genitourinary: No symptoms reported Musculoskeletal: No symptoms reported Skin: No symptoms reported Hematologic/Lymphatic: No symptoms reported Neurological/Psychological: No symptoms reported -: Yes All other systems reviewed and negative <YULI MEDLEY - Last Filed: 12/06/16 06:19> Physical Exam <ROEL LIPSCOMB - Last Filed: 12/04/16 08:33> - Vital signs Interpretation: Hypotensive, Tachycardic - General In distress: Mild - HEENT Head: Normocephalic, Atraumatic Eyes: Normal Conjunctiva: Icteric Extraocular movements intact: Yes Eyelashes: Normal Pupils: PERRL Mucous membranes: Dry, Other - Dried blood in the perioral area Neck: Normal - Respiratory Respiratory status: No respiratory distress Chest status: Nontender Breath sounds: Normal Chest palpation: Normal - Cardiovascular Rhythm: Regular, Tachycardia - Abdominal Inspection: Caput medussa Distension: Distended, Fluid wave Tenderness: Tender - Epigastric - Back Back: Normal - Extremities General upper extremity: Normal inspection General lower extremity: Normal inspection - Neurological Orientation: AAOx4 [place] Coma Scale Eye Opening: Spontaneous [place] Coma Scale Verbal: Oriented Pamela Coma Scale Motor: Obeys Commands Pamela Coma Scale Total: 15 - Psychological Associated symptoms: Flat affect - Skin Skin Temperature: Warm Skin Moisture: Dry Skin Color: Normal <YULI MEDLEY - Last Filed: 12/06/16 06:19> - Vital signs Vitals: Resp BP Pulse Ox 19 84/53 L 97 12/04/16 03:05 12/04/16 03:05 12/04/16 03:05 - Abdominal Notes: Large fluid-filled reducible umbilical hernia (YULI MEDLEY) Course - Laboratory Result Diagrams: 12/03/16 21:30 12/03/16 21:30 <ROEL LIPSCOMB - Last Filed: 12/04/16 08:33> - Laboratory Result Diagrams: 12/03/16 21:30 12/03/16 21:30 <YULI MEDLEY - Last Filed: 12/06/16 06:19> - Re-evaluation Re-evalutation: 12/04/16 07:48 Called to the room. Patient unresponsive with no pulse. Compressions initiated. Patient was intubated with a 7.5 ET tube using direct laryngoscopy after suctioning a large amount of blood from the oropharynx and airway. Patient received a total of 3 rounds of epinephrine and return of spontaneous circulation was achieved. His second unit ofPRBC's is being obtained and the flight crew is here to transport him to [facility]. Portable chest x-ray has been ordered. 12/04/16 08:05 Discussed with director nurses' registry at [facility] Dr. Almendarez and related the events of the code. Dr. Valentino requested an ABG now prior to flying the patient to [facility]. 12/04/16 08:34 Patient's vitals at 8 AM: Heart rate 104 and blood pressure 75/40. PRBCs transfusing as well as octreotide, Protonix, and levophed. ABG results reviewed and relayed to director nurses' registry at [facility] and to flight crew. At this time patient will be transported to [facility]. (ROEL LIPSCOMB) 12/04/16 00:11 Call to [facility] transfer request, awaiting callback 12/04/16 01:00 Patient was discussed with health information clerk Dr. Jung, who agrees to consult on patient once he is transferred to [facility] Patient was then discussed with Dr. Cordero, hospitalist at [facility], who states that patient is too unstable for a floor bed, recommends I speak with the director nurses' registry Patient was then discussed with director nurses' registry Dr. Beck, who graciously accepts patient for transfer, however the transfer center informs me that there are no current ICU beds available 12/04/16 01:14 Patient discussed with Gabriel at transfer center at [facility], will call back with physician for transfer 12/04/16 01:37 Patient was discussed with Dr. Cutler, hospitalist at [facility], who graciously accepts patient for transfer, transfer center states that they anticipate a bed assignment shortly 12/04/16 03:16 Patient's blood pressure just dropped to 72/50, he has 3 L of IV fluids in, he' s had 3 large bloody bowel movements as well, IV Levophed infusion has been ordered, nursing staff has been notified, a repeat call has been placed to [facility] to provide update, will call back with director nurses' registry 12/04/16 03:41 Patient was discussed with director nurses' registry, Dr. Min, who accepts patient for transfer, transfer center states that they have air transport available to pick patient, patient meets criteria for air transport, requested for [facility] to proceed with sending them 12/04/16 06:03 Patient remains awake alert and oriented, he has had mild fluctuations in his blood pressure and heart rate, mainly hovering around 100 systolic on the blood pressure and 100 on the heart rate, overall he is improved, however still remains in critical condition, transport crew is in the emergency room to transfer to [facility], at this point in time patient is stable for transportation provided that he remains on a Levophed drip, continues to get blood transfusion and other medications that are currently being administered (YULI MEDLEY) - Vital Signs Vital signs: Temp Pulse Resp BP Pulse Ox 94.6 F L 103 H 20 146/68 H 100 12/04/16 08:03 12/04/16 08:03 12/04/16 08:03 12/04/16 08:03 12/04/16 08:03 - Laboratory Laboratory results interpreted by me: 12/03/16 12/03/16 12/03/16 21:30 21:30 21:30 RBC 2.68 L Hgb 8.3 L Hct 23.9 L RDW 21.4 H Plt Count 100 L Lymphocytes % 9.6 L PT 18.9 H APTT 37.2 H Carbonic Acid ABG pH ABG pCO2 ABG pO2 ABG HCO3 ABG Total CO2 ABG O2 Saturation VBG pH Sodium 118.9 L* Chloride 83 L Glucose 176 H Total Bilirubin 3.1 H AST 79 H Total Protein 6.1 L Albumin 2.5 L Crossmatch 12/03/16 12/04/16 12/04/16 23:00 01:44 08:10 RBC Hgb Hct RDW Plt Count Lymphocytes % PT APTT Carbonic Acid 1.03 L ABG pH 7.21 L ABG pCO2 34.2 L ABG pO2 326.0 H ABG HCO3 13.2 L ABG Total CO2 14.3 L ABG O2 Saturation 99.6 H VBG pH 7.44 H Sodium Chloride Glucose Total Bilirubin AST Total Protein Albumin Crossmatch See Detail Critical Care Note <ROEL LIPSCOMB - Last Filed: 12/04/16 08:33> - Critical Care Note Total time excluding time spent on procedures (mins): 120 <YULI MEDLEY - Last Filed: 12/06/16 06:19> - Critical Care Note Comments: Patient vomiting bright red blood, hypotensive and tachycardic, requiring IV fluids, IV medications in transfer to tertiary care center (YULI MEDLEY) Discharge <ROEL LIPSCOMB - Last Filed: 12/04/16 08:33> <YULI MEDLEY - Last Filed: 12/06/16 06:19> - Discharge Clinical Impression: Hyponatremia, Coagulopathy, Thrombocytopenia, Upper GI bleed Alcohol intoxication Qualifiers: Complication of substance-induced condition: uncomplicated Qualified Code(s): F10.120 - Alcohol abuse with intoxication, uncomplicated Cirrhosis of liver with ascites Qualifiers: Hepatic cirrhosis type: alcoholic cirrhosis Qualified Code(s): K70.31 - Alcoholic cirrhosis of liver with ascites Condition: Critical Disposition: [facility] Referrals: LEONCIO CARMICHAEL DO [Primary Care Provider] - Follow up as needed
[2016-12-03 21:54] LABS: PROTHROMBIN TIME 18.9 SEC (11.4-15.4)
[2016-12-03 21:55] LABS: PARTIAL THROMBOPLASTIN TIME 37.2 SEC (23.5-35.8)
[2016-12-03 22:05] LABS: ABSOLUTE BASOPHILS # (AUTO) 0.1 10^3/uL (0.0-0.2); ABSOLUTE LYMPHOCYTES (AUTO) 0.5 10^3/uL (0.5-4.7); ABSOLUTE MONOCYTES (AUTO) 0.5 10^3/uL (0.1-1.4); EOSINOPHILS % (AUTO) 0.7 % (0-6); HEMATOCRIT 23.9 % (37.9-51.0); HEMOGLOBIN 8.3 g/dL (13.5-17.0); LYMPHOCYTES % (AUTO) 9.6 % (13-45); MEAN CORPUSCULAR HEMOGLOBIN 30.9 pg (27.0-33.4); MEAN CORPUSCULAR HGB CONC 34.7 g/dL (32.0-36.0); MEAN CORPUSCULAR VOLUME 89 fl (80-97); MONOCYTES % (AUTO) 10.7 % (3-13); RED BLOOD COUNT 2.68 10^6/uL (4.35-5.55); RED CELL DISTRIBUTION WIDTH 21.4 % (11.5-14.0); WHITE BLOOD COUNT 5.1 10^3/uL (4.0-10.5)
[2016-12-03 22:10] LABS: ALANINE AMINOTRANSFERASE 37 U/L (21-72); ALBUMIN 2.5 g/dL (3.5-5.0); ALCOHOL 279 mg/dL (NONE DETECTED); ALKALINE PHOSPHATASE 78 U/L (38-126); ANION GAP 10 (5-19); ASPARTATE AMINO TRANSFERASE 79 U/L (17-59); BILIRUBIN,TOTAL 3.1 mg/dL (0.2-1.3); BLOOD UREA NITROGEN 11 mg/dL (7-20); CALCIUM 8.5 mg/dL (8.4-10.2); CARBON DIOXIDE 26 mmol/L (22-30); CHLORIDE 83 mmol/L (98-107); CREATINE KINASE 61 U/L (55-170); CREATININE RESULT 0.78 mg/dL (0.52-1.25); GLUCOSE 176 mg/dL (75-110); POTASSIUM 4.8 mmol/L (3.6-5.0); TOTAL PROTEIN 6.1 g/dL (6.3-8.2)
[2016-12-03] MEDS ORDERED: NORMAL SALINE 1000 ML 500 ML IV PRN (22:10)
[2016-12-03 22:13] LABS: SODIUM 118.9 mmol/L (137-145)
[2016-12-03 23:08] LABS: VENOUS BLOOD BASE EXCESS 2.4 mmol/L; VENOUS BLOOD HCO3 26.6 mmol/L (20-32); VENOUS BLOOD PCO2 39.7 mmHg (35-63); VENOUS BLOOD PH 7.44 (7.30-7.42)
[2016-12-03] MEDS ORDERED: METOCLOPRAMIDE HCL INJ/PF 10 MG/2 ML SDV IV ONE (23:40)
[2016-12-03] MEDS ORDERED: NORMAL SALINE 1000 ML 1,000 ML IV PRN (23:40)
[2016-12-03] MEDS ORDERED: NORMAL SALINE 500 ML with OCTREOTIDE ACETATE 500 MCG IV PRN ×2 (23:50)
[2016-12-03] MEDS ORDERED: PANTOPRAZOLE SODIUM 40 MG VIAL IV PRN (23:50)
[2016-12-04] MEDS ORDERED: NORMAL SALINE 250 ML IV PRN (00:13)
[2016-12-04] MEDS ORDERED: PANTOPRAZOLE SODIUM 40 MG VIAL IV ONE ×2 (01:02→08:20)
[2016-12-04] MEDS ORDERED: OCTREOTIDE ACETATE INJ/PF 100 MCG/1 ML SDV ONE (01:31)
[2016-12-04] MEDS ORDERED: DEXTROSE 5%-WATER 250 ML with NOREPINEPHRINE BITARTRATE 4 MG IV PRN ×2 (03:14)
[2016-12-04] MEDS ORDERED: NOREPINEPHRINE BITARTRATE INJ/PF 4 MG/4 ML SDV IV ONE ×2 (03:21→08:04)
[2016-12-04 08:14] VITALS: BP 146/68
[2016-12-04 08:23] LABS: ARTERIAL BLOOD BASE EXCESS -13.5 mmol/L; ARTERIAL BLOOD O2 SATURATION 99.6 % (94-98)
[2016-12-04] MEDS ORDERED: EPINEPHRINE INJ 1 MG/10 ML DISP.SYRIN ONE (11:49)
== END 2016-12-04 08:03 | disposition short-term general hospital (02) ==
LOC: ER 21:11
PROC: 0BH17EZ Insertion of Endotracheal Airway into Trachea, Via Natural or Artificial Opening (ICD-10-PCS; principal; 2016-12-03)
DX: K92.2 Gastrointestinal hemorrhage, unspecified (principal); D69.6 Thrombocytopenia, unspecified; D68.9 Coagulation defect, unspecified; K70.31 Alcoholic cirrhosis of liver with ascites; E87.1 Hypo-osmolality and hyponatremia; R00.0 Tachycardia, unspecified; I95.9 Hypotension, unspecified; K42.9 Umbilical hernia without obstruction or gangrene; R10.816 Epigastric abdominal tenderness; I25.10 Atherosclerotic heart disease of native coronary artery without angina pectoris; I10 Essential (primary) hypertension; E11.9 Type 2 diabetes mellitus without complications
CPT/HCPCS: 96376; 99291; 99292; 92950; 96374; 96375; 86900; 86901; 36415; 82553; 36430; 86850; 80307; 82140; 82803 ×2; 82550; 85025; 85610; 85730; 82272; 80053; 86920; 71010; 31500; P9016; J0171; J2765; J3490; C9113 ×2; J2405; J7060; S0164